=== PATIENT | female | born 1990 | race Caucasian/White ===

== ENCOUNTER 2020-04-10 14:59 | Inpatient (IN) ==
[2020-04-10] MEDS ORDERED: Ondansetron 4 MG/2 ML VIAL IVP PRN (15:25)
[2020-04-10] MEDS ORDERED: miSOPROStoL 25 MCG TABLET PO PRN (15:25)
[2020-04-10] MEDS ORDERED: Metoclopramide 10 MG/2 ML VIAL IVP PRN (15:25)
[2020-04-10] MEDS ORDERED: Azithromycin 500 MG in 0.9 % Sodium Chloride 250 ML IVPB ONE (15:25)
[2020-04-10] MEDS ORDERED: *HR* FentaNYL (PF) 100 MCG/2 ML VIAL IVP PRN (15:25)
[2020-04-10] MEDS ORDERED: Lidocaine 1% 20 ML MDV INFILT PRN (15:25)
[2020-04-10] MEDS ORDERED: Famotidine 20 MG/2 ML VIAL IVP PRN (15:25)
[2020-04-10] MEDS ORDERED: Naloxone 0.4 MG/ML INJ IVP PRN (15:25)
[2020-04-10] MEDS ORDERED: Oxytocin 20 units/ LR 1000 mL 20 UNIT/1,000 ML BAG IVC SCH (15:30)
[2020-04-10] MEDS ORDERED: Ropivacaine/PF 0.2% 20 ML VIAL EP ONE (16:12)
[2020-04-10] MEDS ORDERED: EPHEDrine 50 MG/ML VIAL IVP PRN (16:12)
[2020-04-10] MEDS ORDERED: *HR* FentaNYL (PF) 100 MCG/2 ML VIAL EP ONE (16:12)
[2020-04-10] MEDS ORDERED: Ropivacaine/PF 0.2% 20 ML VIAL ONE (16:13)
[2020-04-10] MEDS ORDERED: *HR* FentaNYL (PF) 100 MCG/2 ML VIAL ONE (16:13)
[2020-04-10 16:26] LABS: Amphetamine Screen,Urine Negative ng/mL (Cutoff=1000); Barbiturate Screen,Urine Negative ng/mL (Cutoff=200); Benzodiazepines Screen,Urine Negative ng/mL (Cutoff=200); Cannabinoid Screen,Urine Negative ng/mL (Cutoff = 50); Cocaine Screen,Urine Negative ng/mL (Cutoff= 300); Opiate Screen,Urine Negative ng/mL (Cutoff=300); Phencyclidine Screen,Urine Negative ng/mL (Cutoff=25)
[2020-04-10 16:27] LABS: Basophils # 0.1 K/mcL (0.0-0.2); Basophils % 0.5 %; Eosinophils # 0.1 K/mcL (0.0-0.6); Eosinophils % 1.3 %; Hematocrit 38.5 % (35.3-44.9); Hemoglobin 13.2 g/dL (11.5-15.4); Immature Granulocytes % 0.3 % (0-4); Lymphocytes # 2.1 K/mcL (0.6-4.6); Lymphocytes % 19.3 %; Mean Corpuscular HGB Conc 34.3 g/dL (31.6-35.5); Mean Corpuscular Volume 90.4 fL (83.0-100.0); Mean Platelet Volume 11.9 fL (9.4-12.4); Monocytes # 0.5 K/mcL (0.0-1.3); Monocytes % 4.4 %; Neutrophils # 7.9 K/mcL (1.6-8.9); Platelet Count 253 K/mcL (140-400); Red Blood Count 4.26 M/mcL (3.82-4.97); Red Cell Distribution Width 13.3 % (11.5-14.5); Segmented Neutrophils % 74.2 %; White Blood Count 10.6 K/mcL (4.3-11.1)
[2020-04-10 16:35] LABS: Alanine Aminotransferase 11 Units/L (7-52); Aspartate Amino Transferase 13 Units/L (13-39); BUN/Creatinine Ratio 17 (6-26); Blood Urea Nitrogen 11 mg/dL (6-20); Lactate Dehydrogenase 110 Units/L (140-271); Uric Acid 4.2 mg/dL (2.3-7.6); eGFR For African Americans > 60 (> 60); eGFR For Non-African Americans > 60 (> 60)
[2020-04-10 17:40] LABS: Protein/Creatinine Ratio,Urine 0.13 mg/mg (0.00-0.20)
[2020-04-10] MEDS: Ringers Solution, Lactated 1,000 ML IVC SCH (18:06)
[2020-04-11] MEDS: Epidural Premix (fent/bupiv) 110 ML EP SCH ×2 (01:51→09:18)
[2020-04-11] MEDS ORDERED: *HR* FentaNYL (PF) 100 MCG/2 ML VIAL ONE ×3 (01:55→08:33)
[2020-04-11] MEDS ORDERED: Lidocaine/EPI 1:200k 2% PF 20 ML VIAL ONE (08:33)
[2020-04-11] MEDS: Ringers Solution, Lactated 1,000 ML IVC SCH (09:20)
[2020-04-11] MEDS ORDERED: Rho Immune Globulin 1,500 UNIT SYRINGE IM PRN (15:22)
[2020-04-11] MEDS ORDERED: Benzocaine/Menthol 56 GM AEROSOL SPRAY TP PRN (15:22)
[2020-04-11] MEDS ORDERED: Measles/Mumps/Rubella Vacc 0.5 ML VIAL SQ PRN (15:22)
[2020-04-11] MEDS ORDERED: Lanolin 7 G OINT...G. TP PRN (15:22)
[2020-04-11] MEDS ORDERED: Oxytocin 20 units/ LR 1000 mL 20 UNIT/1,000 ML BAG IVC SCH (15:22)
[2020-04-11] MEDS: Ibuprofen 600 MG TABLET PO SCH (18:02)
[2020-04-11] MEDS: Acetaminophen 325 MG TABLET PO SCH (18:03)
[2020-04-12] MEDS: Ibuprofen 600 MG TABLET PO SCH (08:05)
[2020-04-12] MEDS: Acetaminophen 325 MG TABLET PO SCH (08:07)
[2020-04-12] MEDS ORDERED: Prenatal Vit/FA 1 EACH TABLET PO SCH (09:00)
[2020-04-12 09:49] VITALS: BP 133/92
== END 2020-04-12 12:07 | disposition home or self-care (01) | DRG 560 ==
LOC: 1NENULAB 14:59 → 1NENUOBS 04-11 15:21
PROVIDERS: ADMIT Obstetrics & Gynecology; ATTEND Obstetrics & Gynecology